=== PATIENT | male | born 1960 | race Caucasian/White ===

== ENCOUNTER 2020-02-01 10:07 | Inpatient (IN) ==
[2020-02-01] MEDS ORDERED: 0.9 % Sodium Chloride 500 ML IV ONE (10:38)
[2020-02-01 10:52] LABS: Basophils % 0.3 %; Hematocrit 29.4 % (37.5-50.1); Hemoglobin 9.7 g/dL (12.9-16.9); Immature Granulocytes % 0.7 % (0-4); Lymphocytes % 13.3 %; Mean Corpuscular Hemoglobin 33.2 pg (28.0-33.3); Mean Corpuscular Volume 100.7 fL (83.0-100.0); Mean Platelet Volume 10.7 fL (9.4-12.4); Monocytes # 0.4 K/mcL (0.0-1.3); Monocytes % 5.1 %; Neutrophils # 6.1 K/mcL (1.6-8.9); Platelet Count 106 K/mcL (140-400); Red Blood Count 2.92 M/mcL (4.19-5.50); Red Cell Distribution Width 14.7 % (11.5-14.5); Segmented Neutrophils % 80.6 %; White Blood Count 7.6 K/mcL (4.3-11.1)
[2020-02-01 11:13] LABS: BUN/Creatinine Ratio 16 (6-26); Blood Urea Nitrogen 21 mg/dL (6-20); Calcium 8.9 mg/dL (8.6-10.3); Carbon Dioxide 23 mEq/L (23-29); Chloride 98 mEq/L (98-107); Glucose 188 mg/dL (70-105); Osmolality,Calculated 282 (280-300); Potassium 3.4 mEq/L (3.5-5.1); Sodium 132 mEq/L (136-145); eGFR For African Americans > 60 (> 60); eGFR For Non-African Americans 58 (> 60)
[2020-02-01 11:22] LABS: Troponin I 0.06 ng/mL (< 0.04)
[2020-02-01 11:53] LABS: Adenovirus Not Detected (Not Detect); Bordetella Pertussis Not Detected (Not Detect); Chlamydophila pneumoniae Not Detected (Not Detect); Coronavirus 229E Not Detected (Not Detect); Coronavirus HKU1 Not Detected (Not Detect); Coronavirus NL63 Not Detected (Not Detect); Coronavirus OC43 Not Detected (Not Detect); Human Metapneumovirus Not Detected (Not Detect); Human Rhinovirus/Enterovirus Not Detected (Not Detect); Influenza A Subtype 2009 H1 Not Detected (Not Detect); Influenza B Not Detected (Not Detect); Mycoplasma pneumoniae Not Detected (Not Detect); Parainfluenza Virus 1 Not Detected (Not Detect); Parainfluenza Virus 2 Not Detected (Not Detect); Parainfluenza Virus 3 Not Detected (Not Detect); Parainfluenza Virus 4 Not Detected (Not Detect); Respiratory Syncytial Virus Not Detected (Not Detect); SARS-CoV-2 DETECTED (Not Detect)
[2020-02-01] MEDS ORDERED: Naloxone 0.4 MG/ML INJ IVP PRN (13:32)
[2020-02-01] MEDS ORDERED: Ondansetron 4 MG/2 ML VIAL IVP PRN (13:32)
[2020-02-01] MEDS ORDERED: D5% in Water 1,000 ML IVC PRN (13:40)
[2020-02-01] MEDS ORDERED: *HR* Dextrose 50 % in Water (Vial) 50 ML VIAL IVP PRN (13:40)
[2020-02-01] MEDS ORDERED: Dextrose Gel 15 GM/37.5 ML TUBE PO PRN ×2 (13:40)
[2020-02-01 14:15] LABS: C-Reactive Protein 223 mg/L (Less than 10); Lactate Dehydrogenase 389 Units/L (140-271)
[2020-02-01 14:33] LABS: Ferritin 1182 ng/mL (20-250)
[2020-02-01] MEDS: Piperacillin/Tazobactam 3.375 GM in 0.9 % Sodium Chloride Mini Bag 100 ML IVPB SCH (16:09)
[2020-02-01] MEDS: polyethylene glycoL 3350 17 GM POWD.PACK PO SCH (16:09)
[2020-02-01] MEDS: Insulin LISPRO 300 UNITS/3 ML VIAL SQ SCH ×2 (16:50→20:51)
[2020-02-01 17:18] LABS: Bacteria,Urine Few per hpf (None-Few); Bilirubin,Urine Negative (Negative); Blood,Urine Small (Negative); Clarity,Urine Clear (Clear); Color,Urine Light-Yellow (Yellow); Glucose,Urine (UA) Normal (Normal); Hyaline Casts,Urine Few per lpf (None Seen); Ketones,Urine Negative (Negative); Leukocyte Esterase,Urine Negative (Negative); Mucus,Urine Few per lpf (None-Few); Nitrite,Urine Negative (Negative); PH,Urine 6.5 pH Units (5.0-8.0); Protein,Urine Trace mg/dL (Neg-Trace); Specific Gravity,Urine 1.017 (1.010-1.025); Urobilinogen,Urine Normal (Normal); WBC,Urine 0-3 per hpf (0-3)
[2020-02-01] MEDS: traZODone 50 MG TABLET PO SCH (20:52)
[2020-02-01] MEDS: *HR* Ticagrelor 90 MG TABLET PO SCH (20:52)
[2020-02-01] MEDS: Loratadine 10 MG TABLET PO SCH (20:53)
[2020-02-02] MEDS: Piperacillin/Tazobactam 3.375 GM in 0.9 % Sodium Chloride Mini Bag 100 ML IVPB SCH ×3 (00:34→15:23)
[2020-02-02] MEDS ORDERED: Oxymetazoline Nasal SPRAY BOTTLE NS PRN ×2 (04:13→19:12)
[2020-02-02] MEDS: Levothyroxine 25 MCG TABLET PO SCH (05:48)
[2020-02-02 06:02] LABS: Basophils % 0.1 %; Eosinophils % 0.1 %; Hematocrit 29.1 % (37.5-50.1); Hemoglobin 9.6 g/dL (12.9-16.9); Immature Granulocytes % 0.5 % (0-4); Lymphocytes # 1.1 K/mcL (0.6-4.6); Lymphocytes % 13.1 %; Mean Corpuscular Hemoglobin 33.6 pg (28.0-33.3); Mean Corpuscular Volume 101.7 fL (83.0-100.0); Mean Platelet Volume 10.5 fL (9.4-12.4); Monocytes # 0.6 K/mcL (0.0-1.3); Monocytes % 6.7 %; Neutrophils # 6.8 K/mcL (1.6-8.9); Platelet Count 117 K/mcL (140-400); Red Blood Count 2.86 M/mcL (4.19-5.50); Segmented Neutrophils % 79.5 %; White Blood Count 8.5 K/mcL (4.3-11.1)
[2020-02-02 06:17] LABS: % Iron Saturation 10 % (20-55); Iron 25 mcg/dL (65-175); Transferrin 173 mg/dL (203-362)
[2020-02-02 06:21] LABS: Alanine Aminotransferase 24 Units/L (7-52); Albumin 3.6 g/dL (3.5-5.7); Alkaline Phosphatase 59 Units/L (34-104); Aspartate Amino Transferase 42 Units/L (13-39); BUN/Creatinine Ratio 20 (6-26); Bilirubin,Total 0.7 mg/dL (0.3-1.0); Blood Urea Nitrogen 18 mg/dL (6-20); Calcium 8.5 mg/dL (8.6-10.3); Carbon Dioxide 22 mEq/L (23-29); Chloride 100 mEq/L (98-107); Globulin 3.5 g/dL (2.4-3.5); Glucose 110 mg/dL (70-105); Magnesium 2.1 mg/dL (1.6-2.6); Osmolality,Calculated 277 (280-300); Phosphorous 1.6 mg/dL (2.7-4.5); Potassium 3.7 mEq/L (3.5-5.1); Sodium 132 mEq/L (136-145); Total Protein 7.1 g/dL (6.4-8.9); eGFR For African Americans > 60 (> 60); eGFR For Non-African Americans > 60 (> 60)
[2020-02-02 06:35] LABS: Thyroid Stimulating Hormone 2.832 mcIU/mL (0.340-5.600); Troponin I 0.04 ng/mL (< 0.04)
[2020-02-02 06:51] LABS: Folate > 22.3 ng/mL (3.0-16.0); Vitamin B12 359 pg/mL (250-1100)
[2020-02-02] MEDS: Spironolactone 25 MG TABLET PO SCH (07:36)
[2020-02-02] MEDS: Multivit/Ca/Min/Fe/FA 1 TAB TABLET PO SCH (07:36)
[2020-02-02] MEDS: polyethylene glycoL 3350 17 GM POWD.PACK PO SCH (07:36)
[2020-02-02] MEDS: Lactobacillus 1 EACH CAP.SPRINK PO SCH ×2 (07:36→20:49)
[2020-02-02] MEDS: Insulin LISPRO 300 UNITS/3 ML VIAL SQ SCH ×4 (09:17→20:26)
[2020-02-02] MEDS: Sacubitril/Valsartan 24/26 MG 1 TABLET PO SCH (09:18)
[2020-02-02] MEDS: *HR* Ticagrelor 90 MG TABLET PO SCH ×2 (09:18→17:17)
[2020-02-02] MEDS: Aspirin Enteric Coated 81 MG Tablet PO SCH (09:18)
[2020-02-02] MEDS ORDERED: Iron Sucrose Complex 400 MG in 0.9 % Sodium Chloride 250 ML IVPB ONE (11:13)
[2020-02-02 13:53] LABS: Hematocrit 28.2 % (37.5-50.1); Hemoglobin 9.3 g/dL (12.9-16.9)
[2020-02-02] MEDS ORDERED: *HR* LORazepam 2 MG/ML VIAL IVP PRN (18:32)
[2020-02-02] MEDS: Loratadine 10 MG TABLET PO SCH (20:50)
[2020-02-02] MEDS: traZODone 50 MG TABLET PO SCH (20:50)
[2020-02-03] MEDS: Piperacillin/Tazobactam 3.375 GM in 0.9 % Sodium Chloride Mini Bag 100 ML IVPB SCH ×2 (00:18→07:58)
[2020-02-03 02:59] LABS: ABG Base Excess -3 mEq/L (-2 to 3); ABG HCO3 21 mEq/L (21-27); ABG Oxygen Saturation 94 % (95-98); ABG PCO2 30 mmHg (35-45); ABG PH 7.44 pH Units (7.32-7.45); ABG PO2 67 mmHg (85-104); ABG TCO2 22 mEq/L (20-26); Blood Gas FiO2 2.5 (1-15=lpm or21-100=%)
[2020-02-03 06:16] LABS: Basophils % 0.2 %; Eosinophils % 0.2 %; Hematocrit 25.8 % (37.5-50.1); Hemoglobin 8.1 g/dL (12.9-16.9); Immature Granulocytes % 0.6 % (0-4); Lymphocytes # 1.2 K/mcL (0.6-4.6); Lymphocytes % 14.9 %; Mean Corpuscular HGB Conc 31.4 g/dL (31.6-35.5); Mean Corpuscular Hemoglobin 33.3 pg (28.0-33.3); Mean Corpuscular Volume 106.2 fL (83.0-100.0); Mean Platelet Volume 10.7 fL (9.4-12.4); Monocytes # 0.6 K/mcL (0.0-1.3); Monocytes % 7.3 %; Neutrophils # 6.2 K/mcL (1.6-8.9); Nucleated Red Blood Cells 0.2 /100 WBC (0); Platelet Count 112 K/mcL (140-400); Red Blood Count 2.43 M/mcL (4.19-5.50); Red Cell Distribution Width 15.1 % (11.5-14.5); Segmented Neutrophils % 76.8 %; White Blood Count 8.1 K/mcL (4.3-11.1)
[2020-02-03 06:28] LABS: INR 1.4; Prothrombin Time 15.6 Seconds (9.4-12.1)
[2020-02-03 06:31] LABS: Activated Partial Thrombo Time 32.3 Seconds (26.0-36.0)
[2020-02-03 06:36] LABS: Alanine Aminotransferase 24 Units/L (7-52); Albumin 3.3 g/dL (3.5-5.7); Alkaline Phosphatase 57 Units/L (34-104); Aspartate Amino Transferase 44 Units/L (13-39); BUN/Creatinine Ratio 17 (6-26); Bilirubin,Total 0.6 mg/dL (0.3-1.0); Blood Urea Nitrogen 13 mg/dL (6-20); Calcium 8.4 mg/dL (8.6-10.3); Carbon Dioxide 20 mEq/L (23-29); Chloride 106 mEq/L (98-107); Globulin 3.3 g/dL (2.4-3.5); Glucose 93 mg/dL (70-105); Lactate Dehydrogenase 422 Units/L (140-271); Osmolality,Calculated 280 (280-300); Potassium 3.6 mEq/L (3.5-5.1); Sodium 135 mEq/L (136-145); Total Protein 6.6 g/dL (6.4-8.9); eGFR For African Americans > 60 (> 60); eGFR For Non-African Americans > 60 (> 60)
[2020-02-03] MEDS: Levothyroxine 25 MCG TABLET PO SCH (06:37)
[2020-02-03 06:41] LABS: Platelet Estimate Slight Decrease (Normal)
[2020-02-03] MEDS: *HR* Ticagrelor 90 MG TABLET PO SCH ×2 (08:00→19:34)
[2020-02-03] MEDS: Lactobacillus 1 EACH CAP.SPRINK PO SCH ×2 (08:00→19:34)
[2020-02-03] MEDS: Spironolactone 25 MG TABLET PO SCH (08:00)
[2020-02-03] MEDS: Sacubitril/Valsartan 24/26 MG 1 TABLET PO SCH (08:00)
[2020-02-03] MEDS: Aspirin Enteric Coated 81 MG Tablet PO SCH (08:00)
[2020-02-03] MEDS: polyethylene glycoL 3350 17 GM POWD.PACK PO SCH (08:02)
[2020-02-03] MEDS: Insulin LISPRO 300 UNITS/3 ML VIAL SQ SCH ×4 (08:02→19:35)
[2020-02-03] MEDS: Multivit/Ca/Min/Fe/FA 1 TAB TABLET PO SCH (08:02)
[2020-02-03 08:39] LABS: C-Reactive Protein 195 mg/L (Less than 10); Ferritin > 1500 ng/mL (20-250)
[2020-02-03] MEDS: Dexamethasone 4 MG/ML VIAL IVP SCH (12:00)
[2020-02-03] MEDS ORDERED: GI Cocktail 40 ML EACH PO ONE (13:02)
[2020-02-03] MEDS ORDERED: Oxymetazoline Nasal SPRAY BOTTLE NS PRN (13:21)
[2020-02-03 13:54] LABS: Hemoglobin 8.1 g/dL (12.9-16.9)
[2020-02-03] MEDS: cefTRIAXone 1,000 MG in Water for inj. (sterile) 10 ML IVP SCH (15:08)
[2020-02-03] MEDS: Azithromycin 500 MG in 0.9 % Sodium Chloride 250 ML IVPB SCH (15:10)
[2020-02-03] MEDS: Loratadine 10 MG TABLET PO SCH (19:34)
[2020-02-03] MEDS: traZODone 50 MG TABLET PO SCH (19:34)
[2020-02-04] MEDS: Levothyroxine 25 MCG TABLET PO SCH (05:17)
[2020-02-04] MEDS: Lactobacillus 1 EACH CAP.SPRINK PO SCH ×2 (07:37→20:23)
[2020-02-04] MEDS: *HR* Ticagrelor 90 MG TABLET PO SCH ×2 (07:37→20:24)
[2020-02-04] MEDS: Multivit/Ca/Min/Fe/FA 1 TAB TABLET PO SCH (07:37)
[2020-02-04] MEDS: Spironolactone 25 MG TABLET PO SCH (07:37)
[2020-02-04] MEDS: Sacubitril/Valsartan 24/26 MG 1 TABLET PO SCH (07:37)
[2020-02-04] MEDS: Aspirin Enteric Coated 81 MG Tablet PO SCH (07:37)
[2020-02-04] MEDS: Furosemide 40 MG TABLET PO SCH (07:37)
[2020-02-04] MEDS: Insulin LISPRO 300 UNITS/3 ML VIAL SQ SCH ×4 (07:38→20:34)
[2020-02-04] MEDS: Dexamethasone 4 MG/ML VIAL IVP SCH (07:39)
[2020-02-04] MEDS: polyethylene glycoL 3350 17 GM POWD.PACK PO SCH (08:04)
[2020-02-04 08:38] LABS: Basophils % 0.1 %; Hematocrit 26.3 % (37.5-50.1); Hemoglobin 8.6 g/dL (12.9-16.9); Immature Granulocytes % 0.9 % (0-4); Lymphocytes # 0.7 K/mcL (0.6-4.6); Lymphocytes % 8.5 %; Mean Corpuscular HGB Conc 32.7 g/dL (31.6-35.5); Mean Corpuscular Hemoglobin 33.5 pg (28.0-33.3); Mean Corpuscular Volume 102.3 fL (83.0-100.0); Mean Platelet Volume 10.6 fL (9.4-12.4); Monocytes # 0.5 K/mcL (0.0-1.3); Monocytes % 6.5 %; Neutrophils # 6.8 K/mcL (1.6-8.9); Nucleated Red Blood Cells 0.2 /100 WBC (0); Platelet Count 153 K/mcL (140-400); Red Blood Count 2.57 M/mcL (4.19-5.50); White Blood Count 8.1 K/mcL (4.3-11.1)
[2020-02-04 08:54] LABS: Alanine Aminotransferase 29 Units/L (7-52); Albumin 3.5 g/dL (3.5-5.7); Alkaline Phosphatase 67 Units/L (34-104); Aspartate Amino Transferase 41 Units/L (13-39); BUN/Creatinine Ratio 21 (6-26); Bilirubin,Total 0.5 mg/dL (0.3-1.0); Blood Urea Nitrogen 14 mg/dL (6-20); Carbon Dioxide 22 mEq/L (23-29); Chloride 107 mEq/L (98-107); Globulin 3.5 g/dL (2.4-3.5); Glucose 123 mg/dL (70-105); Osmolality,Calculated 286 (280-300); Potassium 3.6 mEq/L (3.5-5.1); Sodium 137 mEq/L (136-145); eGFR For African Americans > 60 (> 60); eGFR For Non-African Americans > 60 (> 60)
[2020-02-04] MEDS: cefTRIAXone 1,000 MG in Water for inj. (sterile) 10 ML IVP SCH (14:40)
[2020-02-04] MEDS ORDERED: 0.9 % Sodium Chloride 500 ML ONE (14:41)
[2020-02-04] MEDS: Azithromycin 500 MG in 0.9 % Sodium Chloride 250 ML IVPB SCH (14:44)
[2020-02-04] MEDS: Loratadine 10 MG TABLET PO SCH (20:23)
[2020-02-04] MEDS: traZODone 50 MG TABLET PO SCH (20:23)
[2020-02-04] MEDS: *HR* HYDROcodone/Acet 5/325 mg TABLET PO PRN (20:25)
[2020-02-05] MEDS ORDERED: Benzonatate 100 MG CAPSULE PO PRN (01:50)
[2020-02-05] MEDS: Levothyroxine 25 MCG TABLET PO SCH (05:30)
[2020-02-05 07:18] LABS: Basophils % 0.1 %; Eosinophils % 0.1 %; Hematocrit 25.4 % (37.5-50.1); Hemoglobin 8.2 g/dL (12.9-16.9); Immature Granulocytes % 1.3 % (0-4); Lymphocytes # 1.1 K/mcL (0.6-4.6); Lymphocytes % 12.8 %; Mean Corpuscular HGB Conc 32.3 g/dL (31.6-35.5); Mean Corpuscular Hemoglobin 33.9 pg (28.0-33.3); Mean Platelet Volume 10.6 fL (9.4-12.4); Monocytes # 0.6 K/mcL (0.0-1.3); Monocytes % 6.4 %; Neutrophils # 6.9 K/mcL (1.6-8.9); Nucleated Red Blood Cells 0.9 /100 WBC (0); Platelet Count 160 K/mcL (140-400); Red Blood Count 2.42 M/mcL (4.19-5.50); Red Cell Distribution Width 15.1 % (11.5-14.5); Segmented Neutrophils % 79.3 %; White Blood Count 8.7 K/mcL (4.3-11.1)
[2020-02-05] MEDS: Insulin LISPRO 300 UNITS/3 ML VIAL SQ SCH ×4 (07:43→22:28)
[2020-02-05 07:52] LABS: Alanine Aminotransferase 37 Units/L (7-52); Albumin 3.3 g/dL (3.5-5.7); Albumin/Globulin Ratio 1.1 (1.1-2.2); Alkaline Phosphatase 71 Units/L (34-104); Aspartate Amino Transferase 42 Units/L (13-39); BUN/Creatinine Ratio 24 (6-26); Bilirubin,Total 0.5 mg/dL (0.3-1.0); Blood Urea Nitrogen 17 mg/dL (6-20); Calcium 9.3 mg/dL (8.6-10.3); Carbon Dioxide 23 mEq/L (23-29); Chloride 105 mEq/L (98-107); Globulin 3.1 g/dL (2.4-3.5); Glucose 86 mg/dL (70-105); Lactate Dehydrogenase 373 Units/L (140-271); Osmolality,Calculated 287 (280-300); Potassium 3.5 mEq/L (3.5-5.1); Sodium 138 mEq/L (136-145); Total Protein 6.4 g/dL (6.4-8.9); eGFR For African Americans > 60 (> 60); eGFR For Non-African Americans > 60 (> 60)
[2020-02-05 07:58] LABS: Ferritin 1263 ng/mL (20-250)
[2020-02-05] MEDS ORDERED: *HR* Rivaroxaban 10 MG TABLET PO ONE (08:14)
[2020-02-05 09:13] LABS: C-Reactive Protein 100 mg/L (Less than 10)
[2020-02-05] MEDS: Lactobacillus 1 EACH CAP.SPRINK PO SCH ×2 (11:00→20:18)
[2020-02-05] MEDS: Sacubitril/Valsartan 24/26 MG 1 TABLET PO SCH (11:00)
[2020-02-05] MEDS: Spironolactone 25 MG TABLET PO SCH (11:00)
[2020-02-05] MEDS: *HR* Ticagrelor 90 MG TABLET PO SCH ×2 (11:00→20:18)
[2020-02-05] MEDS: Furosemide 40 MG TABLET PO SCH (11:00)
[2020-02-05] MEDS: Aspirin Enteric Coated 81 MG Tablet PO SCH (11:00)
[2020-02-05] MEDS: Dexamethasone 4 MG/ML VIAL IVP SCH (11:02)
[2020-02-05] MEDS: polyethylene glycoL 3350 17 GM POWD.PACK PO SCH (11:02)
[2020-02-05] MEDS: Multivit/Ca/Min/Fe/FA 1 TAB TABLET PO SCH (11:04)
[2020-02-05] MEDS ORDERED: *HR* Rivaroxaban 10 MG TABLET PO SCH ×2 (12:45→17:00)
[2020-02-05] MEDS: cefTRIAXone 1,000 MG in Water for inj. (sterile) 10 ML IVP SCH (15:57)
[2020-02-05] MEDS: Azithromycin 250 MG TABLET PO SCH (15:58)
[2020-02-05] MEDS: traZODone 50 MG TABLET PO SCH (20:18)
[2020-02-05] MEDS: *HR* HYDROcodone/Acet 5/325 mg TABLET PO PRN (20:19)
[2020-02-05] MEDS: Loratadine 10 MG TABLET PO SCH (20:19)
[2020-02-06] MEDS: Levothyroxine 25 MCG TABLET PO SCH (05:21)
[2020-02-06] MEDS: polyethylene glycoL 3350 17 GM POWD.PACK PO SCH (08:28)
[2020-02-06] MEDS: Dexamethasone 4 MG/ML VIAL IVP SCH (08:28)
[2020-02-06] MEDS: Lactobacillus 1 EACH CAP.SPRINK PO SCH ×2 (08:29→20:31)
[2020-02-06] MEDS: Sacubitril/Valsartan 24/26 MG 1 TABLET PO SCH (08:29)
[2020-02-06] MEDS: Spironolactone 25 MG TABLET PO SCH (08:29)
[2020-02-06] MEDS: Multivit/Ca/Min/Fe/FA 1 TAB TABLET PO SCH (08:29)
[2020-02-06] MEDS: *HR* Ticagrelor 90 MG TABLET PO SCH ×2 (08:29→20:31)
[2020-02-06] MEDS: Furosemide 40 MG TABLET PO SCH (08:29)
[2020-02-06] MEDS: Aspirin Enteric Coated 81 MG Tablet PO SCH (08:29)
[2020-02-06] MEDS: *HR* Rivaroxaban 10 MG TABLET PO SCH (08:30)
[2020-02-06 09:06] LABS: INR 1.5; Prothrombin Time 16.6 Seconds (9.4-12.1)
[2020-02-06 09:08] LABS: Hematocrit 30.3 % (37.5-50.1); Mean Corpuscular Volume 103.1 fL (83.0-100.0); Mean Platelet Volume 10.5 fL (9.4-12.4); Platelet Count 195 K/mcL (140-400); Red Blood Count 2.94 M/mcL (4.19-5.50); Red Cell Distribution Width 15.3 % (11.5-14.5); White Blood Count 9.7 K/mcL (4.3-11.1)
[2020-02-06] MEDS: Insulin LISPRO 300 UNITS/3 ML VIAL SQ SCH ×4 (09:42→20:34)
[2020-02-06 12:24] LABS: BUN/Creatinine Ratio 19 (6-26); Blood Urea Nitrogen 15 mg/dL (6-20); C-Reactive Protein 156 mg/L (Less than 10); Calcium 9.3 mg/dL (8.6-10.3); Carbon Dioxide 23 mEq/L (23-29); Chloride 101 mEq/L (98-107); Ferritin 1347 ng/mL (20-250); Glucose 137 mg/dL (70-105); Lactate Dehydrogenase 429 Units/L (140-271); Magnesium 1.8 mg/dL (1.6-2.6); Osmolality,Calculated 285 (280-300); Potassium 3.5 mEq/L (3.5-5.1); Sodium 136 mEq/L (136-145); eGFR For African Americans > 60 (> 60); eGFR For Non-African Americans > 60 (> 60)
[2020-02-06] MEDS: *HR* HYDROcodone/Acet 5/325 mg TABLET PO PRN (14:24)
[2020-02-06] MEDS: Azithromycin 250 MG TABLET PO SCH (14:24)
[2020-02-06] MEDS: cefTRIAXone 1,000 MG in Water for inj. (sterile) 10 ML IVP SCH (14:25)
[2020-02-06] MEDS ORDERED: hydrOXYzine pamoate 25 MG CAPSULE PO PRN (14:32)
[2020-02-06] MEDS: Loratadine 10 MG TABLET PO SCH (20:31)
[2020-02-06] MEDS: traZODone 50 MG TABLET PO SCH (20:32)
[2020-02-07] MEDS: *HR* HYDROcodone/Acet 5/325 mg TABLET PO PRN ×2 (00:06→20:01)
[2020-02-07] MEDS: Levothyroxine 25 MCG TABLET PO SCH (05:38)
[2020-02-07 06:25] LABS: Hematocrit 28.9 % (37.5-50.1); Hemoglobin 9.5 g/dL (12.9-16.9); Mean Corpuscular HGB Conc 32.9 g/dL (31.6-35.5); Mean Corpuscular Volume 100.3 fL (83.0-100.0); Mean Platelet Volume 10.3 fL (9.4-12.4); Platelet Count 198 K/mcL (140-400); Red Blood Count 2.88 M/mcL (4.19-5.50); Red Cell Distribution Width 15.4 % (11.5-14.5); White Blood Count 10.4 K/mcL (4.3-11.1)
[2020-02-07 06:34] LABS: INR 1.4; Prothrombin Time 16.4 Seconds (9.4-12.1)
[2020-02-07 06:38] LABS: Magnesium 1.9 mg/dL (1.6-2.6)
[2020-02-07 06:42] LABS: Lactate Dehydrogenase 410 Units/L (140-271)
[2020-02-07 06:55] LABS: Ferritin 1284 ng/mL (20-250)
[2020-02-07 07:32] VITALS: BP 122/75
[2020-02-07] MEDS: Insulin LISPRO 300 UNITS/3 ML VIAL SQ SCH ×3 (07:49→16:30)
[2020-02-07] MEDS: Multivit/Ca/Min/Fe/FA 1 TAB TABLET PO SCH (07:54)
[2020-02-07] MEDS: Dexamethasone 4 MG/ML VIAL IVP SCH (07:55)
[2020-02-07] MEDS: Spironolactone 25 MG TABLET PO SCH (07:55)
[2020-02-07] MEDS: Furosemide 40 MG TABLET PO SCH (07:55)
[2020-02-07] MEDS: *HR* Ticagrelor 90 MG TABLET PO SCH ×2 (07:55→20:02)
[2020-02-07] MEDS: Lactobacillus 1 EACH CAP.SPRINK PO SCH ×2 (07:55→20:00)
[2020-02-07] MEDS: *HR* Rivaroxaban 10 MG TABLET PO SCH (07:55)
[2020-02-07] MEDS: Aspirin Enteric Coated 81 MG Tablet PO SCH (07:55)
[2020-02-07] MEDS: polyethylene glycoL 3350 17 GM POWD.PACK PO SCH (07:56)
[2020-02-07] MEDS: Sacubitril/Valsartan 24/26 MG 1 TABLET PO SCH (07:57)
[2020-02-07] MEDS ORDERED: cefTRIAXone 1,000 MG in Water for inj. (sterile) 10 ML IVP ONE (08:29)
[2020-02-07] MEDS ORDERED: Azithromycin 250 MG TABLET PO ONE (08:29)
[2020-02-07 08:40] LABS: eGFR For African Americans > 60 (> 60); eGFR For Non-African Americans > 60 (> 60)
[2020-02-07 10:33] LABS: C-Reactive Protein 161 mg/L (Less than 10)
[2020-02-07] MEDS: Loratadine 10 MG TABLET PO SCH (20:02)
== END 2020-02-07 20:40 | disposition home health service (06) | DRG 177 ==
LOC: EMEROOARM 10:07 → 2NENU 10:07 → SUATTDRO 15:46
PROVIDERS: ADMIT Internal Medicine; ATTEND Internal Medicine

== ENCOUNTER 2020-02-13 09:36 | Inpatient (IN) ==
[2020-02-13 10:27] LABS: VBG HCO3 25 mEq/L (21-27); VBG PCO2 42 mmHg (41-51); VBG PH 7.39 pH Units (7.32-7.42); VBG PO2 33 mmHg (25-50)
[2020-02-13 10:28] LABS: Basophils % 0.1 %; Hemoglobin 9.5 g/dL (12.9-16.9); Immature Granulocytes % 0.5 % (0-4); Lymphocytes # 1.3 K/mcL (0.6-4.6); Lymphocytes % 9.5 %; Mean Corpuscular HGB Conc 31.7 g/dL (31.6-35.5); Mean Corpuscular Hemoglobin 32.1 pg (28.0-33.3); Mean Corpuscular Volume 101.4 fL (83.0-100.0); Mean Platelet Volume 10.3 fL (9.4-12.4); Monocytes # 0.9 K/mcL (0.0-1.3); Monocytes % 6.3 %; Neutrophils # 11.6 K/mcL (1.6-8.9); Nucleated Red Blood Cells 0.8 /100 WBC (0); Platelet Count 185 K/mcL (140-400); Red Blood Count 2.96 M/mcL (4.19-5.50); Red Cell Distribution Width 16.3 % (11.5-14.5); Segmented Neutrophils % 83.6 %; White Blood Count 13.9 K/mcL (4.3-11.1)
[2020-02-13 11:00] LABS: BUN/Creatinine Ratio 29 (6-26); Blood Urea Nitrogen 27 mg/dL (6-20); Calcium 8.6 mg/dL (8.6-10.3); Carbon Dioxide 24 mEq/L (23-29); Chloride 99 mEq/L (98-107); Glucose 110 mg/dL (70-105); Osmolality,Calculated 282 (280-300); Potassium 3.6 mEq/L (3.5-5.1); Sodium 133 mEq/L (136-145); eGFR For African Americans > 60 (> 60); eGFR For Non-African Americans > 60 (> 60)
[2020-02-13] MEDS ORDERED: Piperacillin/Tazobactam 3.375 GM in 0.9 % Sodium Chloride Mini Bag 100 ML IVPB ONE (11:08)
[2020-02-13 11:09] LABS: Troponin I 0.06 ng/mL (< 0.04)
[2020-02-13] MEDS ORDERED: Vancomycin 1,250 MG/262.5 ML IV.SOLN IVPB ONE (11:18)
[2020-02-13] MEDS ORDERED: Isovue-370 500 ML BOTTLE IVP ONE (11:20)
[2020-02-13] MEDS ORDERED: Ondansetron 4 MG/2 ML VIAL IVP PRN (13:54)
[2020-02-13] MEDS ORDERED: *HR* Etomidate 40 MG/20 ML VIAL IVP ONE (13:55)
[2020-02-13] MEDS ORDERED: *HR* Rocuronium Bromide 100 MG/10 ML VIAL IVP ONE (13:55)
[2020-02-13 14:03] LABS: ABG Base Excess 2 mEq/L (-2 to 3); ABG HCO3 24 mEq/L (21-27); ABG Oxygen Saturation 94 % (95-98); ABG PCO2 31 mmHg (35-45); ABG PH 7.51 pH Units (7.32-7.45); ABG PO2 63 mmHg (85-104); ABG TCO2 25 mEq/L (20-26)
[2020-02-13] MEDS ORDERED: 0.9 % Sodium Chloride 250 ML ONE (14:34)
[2020-02-13] MEDS ORDERED: *HR* Norepinephrine 4 MG/4 ML VIAL IVC ONE (14:35)
[2020-02-13] MEDS ORDERED: Ringers Solution, Lactated 1,000 ML ONE (14:36)
[2020-02-13] MEDS: Ringers Solution, Lactated 1,000 ML ONE ×2 (14:51→15:17)
[2020-02-13] MEDS: Ringers Solution, Lactated 1,000 ML IVC ONE ×2 (14:51→15:18)
[2020-02-13] MEDS ORDERED: Ringers Solution, Lactated 1,000 ML IVC ONE (14:52)
[2020-02-13] MEDS ORDERED: *HR* FentaNYL (PF) 1,000 MCG/20 ML VIAL ONE (14:57)
[2020-02-13] MEDS: Midazolam HCl 50 MG/100 ML IV.SOLN IVC SCH ×2 (15:13→23:38)
[2020-02-13] MEDS: FentaNYL (PF) 1,000 MCG/100 ML IV.SOLN IVC SCH ×2 (15:14→23:39)
[2020-02-13] MEDS: Norepinephrine 4 MG/254 ML IV.SOLN IVC SCH ×2 (15:14→20:00)
[2020-02-13] MEDS ORDERED: *HR* Rocuronium Bromide 50 MG/5 ML VIAL IVP ONE (15:45)
[2020-02-13] MEDS: Ipratropium 1 PUFF INHALER IH SCH ×2 (15:55→20:07)
[2020-02-13] MEDS ORDERED: Cefepime HCl 2,000 MG in Water for inj. (sterile) 20 ML IVP SCH (16:00)
[2020-02-13] MEDS ORDERED: Artificial Tears SOLN 15 ML BOTTLE BOTH EYES PRN (16:38)
[2020-02-13 17:26] LABS: ABG Base Excess 0 mEq/L (-2 to 3); ABG HCO3 26 mEq/L (21-27); ABG Oxygen Saturation 99 % (95-98); ABG PCO2 42 mmHg (35-45); ABG PH 7.39 pH Units (7.32-7.45); ABG PO2 122 mmHg (85-104); ABG TCO2 27 mEq/L (20-26); Blood Gas Modality ASSIST CONTROL; Blood Gas VT 550 cc
[2020-02-13] MEDS: Budesonide/Formoterol 160/4.5 1 PUFF INH IH SCH (20:13)
[2020-02-13] MEDS: Chlorhexidine Rinse 15 ML MOUTHWASH MM SCH (20:55)
[2020-02-13] MEDS: Piperacillin/Tazobactam 3.375 GM in 0.9 % Sodium Chloride Mini Bag 100 ML IVPB SCH (20:56)
[2020-02-13] MEDS: Artificial Tears SOLN 15 ML BOTTLE BOTH EYES SCH ×2 (20:56→23:39)
[2020-02-13] MEDS ORDERED: *HR* Ticagrelor 90 MG TABLET PO SCH (21:00)
[2020-02-13 21:39] LABS: INR 1.7; Prothrombin Time 19.7 Seconds (9.4-12.1)
[2020-02-13 21:44] LABS: Lactate Dehydrogenase 551 Units/L (140-271)
[2020-02-13 21:48] LABS: Hematocrit 26.6 % (37.5-50.1); Hemoglobin 8.4 g/dL (12.9-16.9)
[2020-02-13] MEDS: Cisatracurium 200 MG in 0.9 % Sodium Chloride 180 ML IVC SCH (21:57)
[2020-02-13 22:07] LABS: Ferritin > 1500 ng/mL (20-250)
[2020-02-13 22:27] LABS: Bilirubin,Urine Negative (Negative); Blood,Urine Moderate (Negative); Clarity,Urine Clear (Clear); Color,Urine Yellow (Yellow); Glucose,Urine (UA) Normal (Normal); Ketones,Urine Negative (Negative); Leukocyte Esterase,Urine Negative (Negative); Nitrite,Urine Negative (Negative); PH,Urine 5.5 pH Units (5.0-8.0); Protein,Urine Trace mg/dL (Neg-Trace); RBC,Urine 50-100 per hpf (0-3); Specific Gravity,Urine > 1.030 (1.010-1.025); Urobilinogen,Urine Normal (Normal); WBC,Urine 0-3 per hpf (0-3)
[2020-02-13] MEDS: Vancomycin 1,250 MG/262.5 ML IV.SOLN IVPB SCH (23:42)
[2020-02-14] MEDS: Ipratropium 1 PUFF INHALER IH SCH ×6 (00:16→19:53)
[2020-02-14] MEDS ORDERED: Acetaminophen 650 MG RECTAL SUPP RC PRN (00:45)
[2020-02-14 03:00] LABS: Basophils % 0.1 %; Eosinophils # 0.1 K/mcL (0.0-0.6); Eosinophils % 0.5 %; Hematocrit 26.8 % (37.5-50.1); Hemoglobin 8.2 g/dL (12.9-16.9); Immature Granulocytes % 0.6 % (0-4); Lymphocytes # 1.2 K/mcL (0.6-4.6); Lymphocytes % 7.8 %; Mean Corpuscular HGB Conc 30.6 g/dL (31.6-35.5); Mean Corpuscular Hemoglobin 31.7 pg (28.0-33.3); Mean Corpuscular Volume 103.5 fL (83.0-100.0); Mean Platelet Volume 10.1 fL (9.4-12.4); Monocytes # 1.1 K/mcL (0.0-1.3); Monocytes % 7.1 %; Nucleated Red Blood Cells 0.8 /100 WBC (0); Platelet Count 184 K/mcL (140-400); Red Blood Count 2.59 M/mcL (4.19-5.50); Red Cell Distribution Width 17.2 % (11.5-14.5); Segmented Neutrophils % 83.9 %; White Blood Count 15.5 K/mcL (4.3-11.1)
[2020-02-14 03:20] LABS: Alanine Aminotransferase 40 Units/L (7-52); Albumin 2.7 g/dL (3.5-5.7); Albumin/Globulin Ratio 0.8 (1.1-2.2); Alkaline Phosphatase 161 Units/L (34-104); Aspartate Amino Transferase 33 Units/L (13-39); BUN/Creatinine Ratio 21 (6-26); Bilirubin,Direct 0.2 mg/dL (0.0-0.2); Bilirubin,Indirect 0.4 mg/dL (0.0-1.0); Bilirubin,Total 0.6 mg/dL (0.3-1.0); Blood Urea Nitrogen 27 mg/dL (6-20); Calcium 7.5 mg/dL (8.6-10.3); Carbon Dioxide 26 mEq/L (23-29); Chloride 105 mEq/L (98-107); Globulin 3.4 g/dL (2.4-3.5); Glucose 132 mg/dL (70-105); Magnesium 2.2 mg/dL (1.6-2.6); Osmolality,Calculated 289 (280-300); Phosphorous 5.3 mg/dL (2.7-4.5); Potassium 4.5 mEq/L (3.5-5.1); Sodium 136 mEq/L (136-145); Total Protein 6.1 g/dL (6.4-8.9); eGFR For African Americans > 60 (> 60); eGFR For Non-African Americans 58 (> 60)
[2020-02-14] MEDS: Norepinephrine 4 MG/254 ML IV.SOLN IVC SCH ×4 (04:00→23:25)
[2020-02-14 04:06] LABS: ABG Base Excess -3 mEq/L (-2 to 3); ABG HCO3 27 mEq/L (21-27); ABG Oxygen Saturation 100 % (95-98); ABG PCO2 67 mmHg (35-45); ABG PO2 234 mmHg (85-104); ABG TCO2 29 mEq/L (20-26); Blood Gas Modality ASSIST CONTROL; Blood Gas VT 450 cc
[2020-02-14] MEDS: Artificial Tears SOLN 15 ML BOTTLE BOTH EYES SCH ×5 (04:33→20:00)
[2020-02-14] MEDS: Piperacillin/Tazobactam 3.375 GM in 0.9 % Sodium Chloride Mini Bag 100 ML IVPB SCH ×3 (04:33→20:34)
[2020-02-14] MEDS: Levothyroxine 25 MCG TABLET PO SCH (04:34)
[2020-02-14] MEDS: FentaNYL (PF) 1,000 MCG/100 ML IV.SOLN IVC SCH ×3 (05:32→19:15)
[2020-02-14] MEDS: Budesonide/Formoterol 160/4.5 1 PUFF INH IH SCH ×2 (07:30→19:53)
[2020-02-14 07:41] LABS: ABG Base Excess -3 mEq/L (-2 to 3); ABG HCO3 26 mEq/L (21-27); ABG Oxygen Saturation 100 % (95-98); ABG PCO2 65 mmHg (35-45); ABG PH 7.21 pH Units (7.32-7.45); ABG PO2 260 mmHg (85-104); ABG TCO2 28 mEq/L (20-26); Blood Gas Modality ASSIST CONTROL; Blood Gas VT 450 cc
[2020-02-14] MEDS: Chlorhexidine Rinse 15 ML MOUTHWASH MM SCH (07:52)
[2020-02-14] MEDS: Pantoprazole 40 MG VIAL IVP SCH (07:52)
[2020-02-14] MEDS ORDERED: Aspirin Enteric Coated 81 MG Tablet PO SCH (09:00)
[2020-02-14] MEDS: Calcium Gluconate 1gm/50mL 1 GM/50 ML BAG IVPB SCH (09:06)
[2020-02-14] MEDS: Midazolam HCl 50 MG/100 ML IV.SOLN IVC SCH ×2 (09:35→18:43)
[2020-02-14] MEDS: Vancomycin 1,250 MG/262.5 ML IV.SOLN IVPB SCH (11:44)
[2020-02-14 11:51] LABS: ABG Base Excess -3 mEq/L (-2 to 3); ABG HCO3 23 mEq/L (21-27); ABG Oxygen Saturation 93 % (95-98); ABG PCO2 46 mmHg (35-45); ABG PH 7.32 pH Units (7.32-7.45); ABG PO2 72 mmHg (85-104); ABG TCO2 25 mEq/L (20-26); Blood Gas Modality ASSIST CONTROL; Blood Gas VT 450 cc
[2020-02-14] MEDS: Dexamethasone 4 MG/ML VIAL IVP SCH (15:34)
[2020-02-14] MEDS ORDERED: *HR* Rivaroxaban 10 MG TABLET PO SCH (17:00)
[2020-02-14 17:06] LABS: Basophils % 0.1 %; Eosinophils # 0.1 K/mcL (0.0-0.6); Eosinophils % 0.6 %; Hematocrit 23.5 % (37.5-50.1); Hemoglobin 7.2 g/dL (12.9-16.9); Immature Granulocytes % 0.6 % (0-4); Lymphocytes # 0.9 K/mcL (0.6-4.6); Lymphocytes % 7.8 %; Mean Corpuscular HGB Conc 30.6 g/dL (31.6-35.5); Mean Corpuscular Volume 104.4 fL (83.0-100.0); Monocytes # 0.6 K/mcL (0.0-1.3); Monocytes % 5.4 %; Neutrophils # 9.5 K/mcL (1.6-8.9); Nucleated Red Blood Cells 0.6 /100 WBC (0); Platelet Count 129 K/mcL (140-400); Red Blood Count 2.25 M/mcL (4.19-5.50); Red Cell Distribution Width 17.2 % (11.5-14.5); Segmented Neutrophils % 85.5 %; White Blood Count 11.1 K/mcL (4.3-11.1)
[2020-02-14 17:26] LABS: Alanine Aminotransferase 36 Units/L (7-52); Albumin 2.5 g/dL (3.5-5.7); Albumin/Globulin Ratio 0.7 (1.1-2.2); Alkaline Phosphatase 124 Units/L (34-104); Aspartate Amino Transferase 31 Units/L (13-39); BUN/Creatinine Ratio 23 (6-26); Bilirubin,Total 0.5 mg/dL (0.3-1.0); Blood Urea Nitrogen 30 mg/dL (6-20); Calcium 7.9 mg/dL (8.6-10.3); Carbon Dioxide 25 mEq/L (23-29); Chloride 109 mEq/L (98-107); Globulin 3.4 g/dL (2.4-3.5); Glucose 113 mg/dL (70-105); Osmolality,Calculated 295 (280-300); Potassium 4.5 mEq/L (3.5-5.1); Sodium 139 mEq/L (136-145); Total Protein 5.9 g/dL (6.4-8.9); eGFR For African Americans > 60 (> 60); eGFR For Non-African Americans 56 (> 60)
[2020-02-14] MEDS ORDERED: 0.9 % Sodium Chloride 250 ML ONE (20:32)
[2020-02-14] MEDS: Furosemide 20 MG/2 ML VIAL IVP SCH (23:24)
[2020-02-15] MEDS: Ipratropium 1 PUFF INHALER IH SCH ×7 (00:15→23:45)
[2020-02-15] MEDS: Artificial Tears SOLN 15 ML BOTTLE BOTH EYES SCH ×7 (00:36→23:50)
[2020-02-15] MEDS: Chlorhexidine Rinse 15 ML MOUTHWASH MM SCH ×3 (00:36→19:52)
[2020-02-15] MEDS: Vancomycin 1,250 MG/262.5 ML IV.SOLN IVPB SCH ×2 (01:22→13:08)
[2020-02-15] MEDS: Cisatracurium 200 MG in 0.9 % Sodium Chloride 180 ML IVC SCH ×2 (02:00→19:45)
[2020-02-15] MEDS: Piperacillin/Tazobactam 3.375 GM in 0.9 % Sodium Chloride Mini Bag 100 ML IVPB SCH ×3 (03:13→19:52)
[2020-02-15] MEDS ORDERED: 0.9 % Sodium Chloride 250 ML ONE (03:18)
[2020-02-15] MEDS: FentaNYL (PF) 1,000 MCG/100 ML IV.SOLN IVC SCH ×4 (03:30→19:09)
[2020-02-15 04:15] LABS: ABG Base Excess -1 mEq/L (-2 to 3); ABG HCO3 25 mEq/L (21-27); ABG Oxygen Saturation 94 % (95-98); ABG PCO2 45 mmHg (35-45); ABG PH 7.35 pH Units (7.32-7.45); ABG PO2 73 mmHg (85-104); ABG TCO2 26 mEq/L (20-26); Blood Gas Modality ASSIST CONTROL; Blood Gas VT 450 cc
[2020-02-15 04:30] LABS: Basophils % 0.1 %; Hematocrit 26.9 % (37.5-50.1); Hemoglobin 8.2 g/dL (12.9-16.9); Immature Granulocytes % 0.5 % (0-4); Lymphocytes # 0.9 K/mcL (0.6-4.6); Lymphocytes % 7.4 %; Mean Corpuscular HGB Conc 30.5 g/dL (31.6-35.5); Mean Corpuscular Hemoglobin 30.8 pg (28.0-33.3); Mean Corpuscular Volume 101.1 fL (83.0-100.0); Mean Platelet Volume 9.8 fL (9.4-12.4); Monocytes # 0.6 K/mcL (0.0-1.3); Nucleated Red Blood Cells 0.3 /100 WBC (0); Platelet Count 117 K/mcL (140-400); Red Blood Count 2.66 M/mcL (4.19-5.50); White Blood Count 11.4 K/mcL (4.3-11.1)
[2020-02-15 04:30] LABS: VBG Ionized Calcium 1.09 mmol/L (1.15-1.35)
[2020-02-15 04:46] LABS: Alanine Aminotransferase 32 Units/L (7-52); Albumin 2.6 g/dL (3.5-5.7); Albumin/Globulin Ratio 0.8 (1.1-2.2); Alkaline Phosphatase 108 Units/L (34-104); Aspartate Amino Transferase 28 Units/L (13-39); BUN/Creatinine Ratio 22 (6-26); Bilirubin,Total 0.6 mg/dL (0.3-1.0); Blood Urea Nitrogen 29 mg/dL (6-20); Calcium 7.6 mg/dL (8.6-10.3); Carbon Dioxide 24 mEq/L (23-29); Chloride 110 mEq/L (98-107); Globulin 3.3 g/dL (2.4-3.5); Glucose 135 mg/dL (70-105); Magnesium 2.4 mg/dL (1.6-2.6); Osmolality,Calculated 298 (280-300); Phosphorous 3.2 mg/dL (2.7-4.5); Potassium 4.4 mEq/L (3.5-5.1); Sodium 140 mEq/L (136-145); Total Protein 5.9 g/dL (6.4-8.9); eGFR For African Americans > 60 (> 60); eGFR For Non-African Americans 57 (> 60)
[2020-02-15] MEDS: Levothyroxine 25 MCG TABLET PO SCH (05:33)
[2020-02-15] MEDS: Calcium Gluconate 1gm/50mL 1 GM/50 ML BAG IVPB PRN ×2 (06:13→17:26)
[2020-02-15] MEDS: Furosemide 20 MG/2 ML VIAL IVP SCH (06:13)
[2020-02-15] MEDS: Midazolam HCl 50 MG/100 ML IV.SOLN IVC SCH ×2 (06:16→14:10)
[2020-02-15] MEDS: Budesonide/Formoterol 160/4.5 1 PUFF INH IH SCH ×2 (07:52→19:27)
[2020-02-15] MEDS: Pantoprazole 40 MG VIAL IVP SCH (09:11)
[2020-02-15] MEDS: Dexamethasone 4 MG/ML VIAL IVP SCH (09:12)
[2020-02-15] MEDS: Calcium Gluconate 1gm/50mL 1 GM/50 ML BAG IVPB SCH (13:10)
[2020-02-15 13:47] LABS: Basophils % 0.1 %; Eosinophils % 0.1 %; Hematocrit 28.4 % (37.5-50.1); Immature Granulocytes % 0.6 % (0-4); Lymphocytes # 0.5 K/mcL (0.6-4.6); Lymphocytes % 4.2 %; Mean Corpuscular HGB Conc 31.7 g/dL (31.6-35.5); Mean Corpuscular Volume 94.7 fL (83.0-100.0); Mean Platelet Volume 9.7 fL (9.4-12.4); Monocytes # 0.2 K/mcL (0.0-1.3); Monocytes % 1.7 %; Nucleated Red Blood Cells 0.2 /100 WBC (0); Platelet Count 111 K/mcL (140-400); Red Cell Distribution Width 22.1 % (11.5-14.5); Segmented Neutrophils % 93.3 %; White Blood Count 12.9 K/mcL (4.3-11.1)
[2020-02-15 13:52] LABS: INR 1.4; Prothrombin Time 16.5 Seconds (9.4-12.1)
[2020-02-15 13:54] LABS: Activated Partial Thrombo Time 29.7 Seconds (26.0-36.0)
[2020-02-15 14:13] LABS: BUN/Creatinine Ratio 24 (6-26); Blood Urea Nitrogen 30 mg/dL (6-20); Calcium 7.8 mg/dL (8.6-10.3); Carbon Dioxide 24 mEq/L (23-29); Chloride 110 mEq/L (98-107); Glucose 158 mg/dL (70-105); Osmolality,Calculated 301 (280-300); Potassium 4.2 mEq/L (3.5-5.1); Sodium 141 mEq/L (136-145); eGFR For African Americans > 60 (> 60); eGFR For Non-African Americans 60 (> 60)
[2020-02-15] MEDS ORDERED: *HR* Dextrose 50 % in Water (Vial) 50 ML VIAL IVP PRN (17:20)
[2020-02-15] MEDS ORDERED: D5% in Water 1,000 ML IVC PRN (17:20)
[2020-02-15] MEDS ORDERED: Dextrose Gel 15 GM/37.5 ML TUBE PO PRN ×2 (17:20)
[2020-02-15] MEDS: Acetaminophen 325 MG TABLET PO PRN ×2 (17:23→23:53)
[2020-02-15] MEDS: Norepinephrine 4 MG/254 ML IV.SOLN IVC SCH (17:31)
[2020-02-15 19:37] LABS: Enterococcus by PCR Not Detected (Not Detect); Staphylococcus aureus by PCR DETECTED (Not Detect); Staphylococcus by PCR Not Detected (Not Detect); mecA Methicillin-Resist Gene DETECTED (Not Detect)
[2020-02-15 19:38] LABS: Acinetobacter baumannii by PCR Not Detected (Not Detect); Candida albicans by PCR Not Detected (Not Detect); Candida glabrata by PCR Not Detected (Not Detect); Candida krusei by PCR Not Detected (Not Detect); Candida parapsilosis by PCR Not Detected (Not Detect); Candida tropicalis by PCR Not Detected (Not Detect); Enterobacter cloacae Cmplx PCR Not Detected (Not Detect); Enterobacteriaceae by PCR Not Detected (Not Detect); Escherichia coli by PCR Not Detected (Not Detect); Klebsiella oxytoca by PCR Not Detected (Not Detect); Klebsiella pneumoniae by PCR Not Detected (Not Detect); Proteus by PCR Not Detected (Not Detect); Pseudomonas aeruginosa by PCR Not Detected (Not Detect); Serratia marcescens by PCR Not Detected (Not Detect); Streptococcus agalactiae(B)PCR Not Detected (Not Detect); Streptococcus by PCR Not Detected (Not Detect); Streptococcus pneumoniae PCR Not Detected (Not Detect); Streptococcus pyogenes (A) PCR Not Detected (Not Detect)
[2020-02-15] MEDS: Insulin LISPRO 300 UNITS/3 ML VIAL SQ SCH ×2 (21:58→23:50)
[2020-02-16] MEDS: Vancomycin 1,250 MG/262.5 ML IV.SOLN IVPB SCH ×2 (00:09→13:18)
[2020-02-16] MEDS: Midazolam HCl 50 MG/100 ML IV.SOLN IVC SCH ×2 (00:52→14:06)
[2020-02-16] MEDS: FentaNYL (PF) 1,000 MCG/100 ML IV.SOLN IVC SCH ×4 (00:53→17:00)
[2020-02-16] MEDS: Ipratropium 1 PUFF INHALER IH SCH ×6 (03:33→23:29)
[2020-02-16] MEDS: Artificial Tears SOLN 15 ML BOTTLE BOTH EYES SCH ×5 (03:52→21:58)
[2020-02-16] MEDS: Piperacillin/Tazobactam 3.375 GM in 0.9 % Sodium Chloride Mini Bag 100 ML IVPB SCH ×3 (03:53→22:00)
[2020-02-16 03:57] LABS: ABG Base Excess 2 mEq/L (-2 to 3); ABG HCO3 27 mEq/L (21-27); ABG Oxygen Saturation 96 % (95-98); ABG PCO2 41 mmHg (35-45); ABG PH 7.42 pH Units (7.32-7.45); ABG PO2 80 mmHg (85-104); ABG TCO2 28 mEq/L (20-26); Blood Gas Modality ASSIST CONTROL; Blood Gas VT 450 cc
[2020-02-16] MEDS: Insulin LISPRO 300 UNITS/3 ML VIAL SQ SCH ×5 (04:20→21:59)
[2020-02-16] MEDS: Levothyroxine 25 MCG TABLET PO SCH (04:32)
[2020-02-16 04:35] LABS: Hemoglobin 8.4 g/dL (12.9-16.9)
[2020-02-16 04:37] LABS: Basophils % 0.1 %; Hematocrit 26.9 % (37.5-50.1); Immature Granulocytes % 0.9 % (0-4); Immature Platelets 2.7 % (1.1-6.1); Lymphocytes # 0.9 K/mcL (0.6-4.6); Lymphocytes % 8.3 %; Mean Corpuscular HGB Conc 31.2 g/dL (31.6-35.5); Mean Corpuscular Hemoglobin 30.1 pg (28.0-33.3); Mean Corpuscular Volume 96.4 fL (83.0-100.0); Mean Platelet Volume 10.1 fL (9.4-12.4); Monocytes # 0.8 K/mcL (0.0-1.3); Monocytes % 7.1 %; Neutrophils # 9.1 K/mcL (1.6-8.9); Nucleated Red Blood Cells 0.2 /100 WBC (0); Platelet Count 111 K/mcL (140-400); Red Blood Count 2.79 M/mcL (4.19-5.50); Red Cell Distribution Width 21.6 % (11.5-14.5); Segmented Neutrophils % 83.6 %; White Blood Count 10.9 K/mcL (4.3-11.1)
[2020-02-16 04:43] LABS: VBG Ionized Calcium 1.17 mmol/L (1.15-1.35)
[2020-02-16 04:52] LABS: Alanine Aminotransferase 28 Units/L (7-52); Albumin 2.6 g/dL (3.5-5.7); Albumin/Globulin Ratio 0.9 (1.1-2.2); Alkaline Phosphatase 91 Units/L (34-104); Aspartate Amino Transferase 28 Units/L (13-39); BUN/Creatinine Ratio 24 (6-26); Bilirubin,Total 0.5 mg/dL (0.3-1.0); Blood Urea Nitrogen 29 mg/dL (6-20); Calcium 7.9 mg/dL (8.6-10.3); Carbon Dioxide 26 mEq/L (23-29); Chloride 113 mEq/L (98-107); Glucose 163 mg/dL (70-105); Magnesium 2.6 mg/dL (1.6-2.6); Osmolality,Calculated 305 (280-300); Phosphorous 2.2 mg/dL (2.7-4.5); Potassium 4.1 mEq/L (3.5-5.1); Sodium 143 mEq/L (136-145); Total Protein 5.6 g/dL (6.4-8.9); eGFR For African Americans > 60 (> 60); eGFR For Non-African Americans > 60 (> 60)
[2020-02-16] MEDS: Budesonide/Formoterol 160/4.5 1 PUFF INH IH SCH ×2 (07:33→19:37)
[2020-02-16] MEDS: Chlorhexidine Rinse 15 ML MOUTHWASH MM SCH ×2 (09:03→22:01)
[2020-02-16] MEDS: Pantoprazole 40 MG VIAL IVP SCH (09:03)
[2020-02-16] MEDS: Dexamethasone 4 MG/ML VIAL IVP SCH (09:03)
[2020-02-16] MEDS: Norepinephrine 4 MG/254 ML IV.SOLN IVC SCH (11:00)
[2020-02-16] MEDS ORDERED: Perflutren Lipid Microsphere 1.3 ML in 0.9 % Sodium Chloride 8.7 ML IVP PRN (11:17)
[2020-02-16 12:00] LABS: BUN/Creatinine Ratio 25 (6-26); Blood Urea Nitrogen 28 mg/dL (6-20); Calcium 7.7 mg/dL (8.6-10.3); Carbon Dioxide 27 mEq/L (23-29); Chloride 113 mEq/L (98-107); Glucose 149 mg/dL (70-105); Osmolality,Calculated 306 (280-300); Potassium 4.2 mEq/L (3.5-5.1); Sodium 144 mEq/L (136-145); Vancomycin,Trough 16 mcg/mL (5-10); eGFR For African Americans > 60 (> 60); eGFR For Non-African Americans > 60 (> 60)
[2020-02-16 12:28] LABS: Hematocrit 27.1 % (37.5-50.1); Hemoglobin 8.3 g/dL (12.9-16.9)
[2020-02-16] MEDS: Cisatracurium 200 MG in 0.9 % Sodium Chloride 180 ML IVC SCH (16:25)
[2020-02-16 21:27] LABS: Hematocrit 27.2 % (37.5-50.1); Hemoglobin 8.1 g/dL (12.9-16.9)
[2020-02-16] MEDS: Dexmedetomidine HCl 400 MCG/100 ML MLS IVC SCH (23:19)
[2020-02-17] MEDS: Artificial Tears SOLN 15 ML BOTTLE BOTH EYES SCH ×6 (00:09→19:44)
[2020-02-17] MEDS: Vancomycin 1,250 MG/262.5 ML IV.SOLN IVPB SCH ×2 (00:09→12:11)
[2020-02-17] MEDS: Insulin LISPRO 300 UNITS/3 ML VIAL SQ SCH ×6 (00:09→20:23)
[2020-02-17] MEDS: Piperacillin/Tazobactam 3.375 GM in 0.9 % Sodium Chloride Mini Bag 100 ML IVPB SCH ×3 (03:47→19:47)
[2020-02-17] MEDS: FentaNYL (PF) 1,000 MCG/100 ML IV.SOLN IVC SCH ×2 (03:50→09:42)
[2020-02-17] MEDS: Ipratropium 1 PUFF INHALER IH SCH ×6 (04:09→23:21)
[2020-02-17 04:31] LABS: ABG Base Excess 2 mEq/L (-2 to 3); ABG HCO3 27 mEq/L (21-27); ABG Oxygen Saturation 93 % (95-98); ABG PCO2 39 mmHg (35-45); ABG PH 7.45 pH Units (7.32-7.45); ABG PO2 64 mmHg (85-104); ABG TCO2 28 mEq/L (20-26); Blood Gas Modality ASSIST CONTROL; Blood Gas VT 450 cc
[2020-02-17] MEDS: Dexmedetomidine HCl 400 MCG/100 ML MLS IVC SCH ×4 (05:59→21:53)
[2020-02-17 06:23] LABS: Eosinophils % 0.1 %; Hematocrit 25.3 % (37.5-50.1); Hemoglobin 7.8 g/dL (12.9-16.9); Mean Corpuscular HGB Conc 30.8 g/dL (31.6-35.5)
[2020-02-17 06:24] LABS: VBG Ionized Calcium 1.19 mmol/L (1.15-1.35)
[2020-02-17 06:25] LABS: Immature Granulocytes % 0.4 % (0-4); Immature Platelets 3.2 % (1.1-6.1); Lymphocytes # 0.9 K/mcL (0.6-4.6); Lymphocytes % 10.8 %; Mean Corpuscular Hemoglobin 30.1 pg (28.0-33.3); Mean Corpuscular Volume 97.7 fL (83.0-100.0); Mean Platelet Volume 9.7 fL (9.4-12.4); Monocytes # 0.6 K/mcL (0.0-1.3); Monocytes % 7.1 %; Neutrophils # 6.5 K/mcL (1.6-8.9); Red Blood Count 2.59 M/mcL (4.19-5.50); Red Cell Distribution Width 20.6 % (11.5-14.5); Segmented Neutrophils % 81.6 %
[2020-02-17] MEDS: Levothyroxine 25 MCG TABLET PO SCH (06:38)
[2020-02-17 06:42] LABS: Alanine Aminotransferase 28 Units/L (7-52); Albumin 2.4 g/dL (3.5-5.7); Albumin/Globulin Ratio 0.9 (1.1-2.2); Alkaline Phosphatase 71 Units/L (34-104); Aspartate Amino Transferase 41 Units/L (13-39); BUN/Creatinine Ratio 31 (6-26); Bilirubin,Total 0.4 mg/dL (0.3-1.0); Blood Urea Nitrogen 30 mg/dL (6-20); Calcium 7.6 mg/dL (8.6-10.3); Carbon Dioxide 25 mEq/L (23-29); Chloride 116 mEq/L (98-107); Globulin 2.7 g/dL (2.4-3.5); Glucose 155 mg/dL (70-105); Magnesium 2.6 mg/dL (1.6-2.6); Osmolality,Calculated 309 (280-300); Phosphorous 1.8 mg/dL (2.7-4.5); Sodium 145 mEq/L (136-145); Total Protein 5.1 g/dL (6.4-8.9); eGFR For African Americans > 60 (> 60); eGFR For Non-African Americans > 60 (> 60)
[2020-02-17 07:04] LABS: Platelet Count 96 K/mcL (140-400); Platelet Estimate Slight Decrease (Normal); Poikilocytosis 1+ (Not Present)
[2020-02-17 07:05] LABS: Anisocytosis 1+ (Not Present); Hypochromasia Present (Not Present); Microcytosis Present (Not Present); Ovalocytes 1+ (Not Present)
[2020-02-17] MEDS: Budesonide/Formoterol 160/4.5 1 PUFF INH IH SCH ×2 (07:38→19:45)
[2020-02-17] MEDS: Dexamethasone 4 MG/ML VIAL IVP SCH (08:13)
[2020-02-17] MEDS: Chlorhexidine Rinse 15 ML MOUTHWASH MM SCH ×2 (08:13→19:45)
[2020-02-17] MEDS: Pantoprazole 40 MG VIAL IVP SCH (08:14)
[2020-02-17] MEDS ORDERED: Oxymetazoline Nasal SPRAY BOTTLE NS PRN (08:59)
[2020-02-17 12:00] LABS: BUN/Creatinine Ratio 34 (6-26); Blood Urea Nitrogen 31 mg/dL (6-20); Calcium 7.8 mg/dL (8.6-10.3); Carbon Dioxide 26 mEq/L (23-29); Chloride 116 mEq/L (98-107); Glucose 145 mg/dL (70-105); Osmolality,Calculated 309 (280-300); Potassium 4.1 mEq/L (3.5-5.1); Sodium 145 mEq/L (136-145); eGFR For African Americans > 60 (> 60); eGFR For Non-African Americans > 60 (> 60)
[2020-02-17] MEDS: *HR* Fondaparinux 2.5 MG/0.5 ML SYRINGE SQ SCH (12:06)
[2020-02-17] MEDS ORDERED: *HR* Heparin 5,000 UNIT/ML VIAL SQ SCH (14:00)
[2020-02-17] MEDS: FentaNYL (PF) 2,500 MCG/50 ML IV.SOLN IVC SCH (14:46)
[2020-02-17] MEDS ORDERED: 0.9 % Sodium Chloride 250 ML ONE (18:31)
[2020-02-18] MEDS: Artificial Tears SOLN 15 ML BOTTLE BOTH EYES SCH ×7 (00:35→23:54)
[2020-02-18] MEDS: Insulin LISPRO 300 UNITS/3 ML VIAL SQ SCH ×7 (00:36→23:54)
[2020-02-18] MEDS: Vancomycin 1,250 MG/262.5 ML IV.SOLN IVPB SCH ×2 (00:39→11:32)
[2020-02-18] MEDS: Midazolam HCl 50 MG/100 ML IV.SOLN IVC SCH ×2 (00:46→16:20)
[2020-02-18] MEDS: Dexmedetomidine HCl 400 MCG/100 ML MLS IVC SCH ×5 (02:27→20:32)
[2020-02-18] MEDS: Ipratropium 1 PUFF INHALER IH SCH ×5 (03:08→19:42)
[2020-02-18 04:46] LABS: ABG Base Excess 1 mEq/L (-2 to 3); ABG HCO3 26 mEq/L (21-27); ABG Oxygen Saturation 86 % (95-98); ABG PCO2 42 mmHg (35-45); ABG PO2 52 mmHg (85-104); ABG TCO2 27 mEq/L (20-26); Blood Gas Modality ASSIST CONTROL; Blood Gas VT 450 cc
[2020-02-18] MEDS: Piperacillin/Tazobactam 3.375 GM in 0.9 % Sodium Chloride Mini Bag 100 ML IVPB SCH ×3 (05:00→20:04)
[2020-02-18 05:08] LABS: Basophils % 0.1 %; Immature Granulocytes % 0.5 % (0-4); Mean Platelet Volume 10.5 fL (9.4-12.4); Monocytes % 6.5 %
[2020-02-18 05:10] LABS: Eosinophils % 0.4 %; Hematocrit 30.7 % (37.5-50.1); Hemoglobin 9.5 g/dL (12.9-16.9); Immature Platelets 3.7 % (1.1-6.1); Lymphocytes # 1.2 K/mcL (0.6-4.6); Lymphocytes % 14.2 %; Mean Corpuscular HGB Conc 30.9 g/dL (31.6-35.5); Mean Corpuscular Hemoglobin 30.3 pg (28.0-33.3); Mean Corpuscular Volume 97.8 fL (83.0-100.0); Monocytes # 0.5 K/mcL (0.0-1.3); Neutrophils # 6.5 K/mcL (1.6-8.9); Nucleated Red Blood Cells 0.6 /100 WBC (0); Red Blood Count 3.14 M/mcL (4.19-5.50); Red Cell Distribution Width 19.5 % (11.5-14.5); Segmented Neutrophils % 78.3 %; White Blood Count 8.3 K/mcL (4.3-11.1)
[2020-02-18 05:17] LABS: Platelet Count 88 K/mcL (140-400)
[2020-02-18 05:26] LABS: Alanine Aminotransferase 27 Units/L (7-52); Albumin 2.3 g/dL (3.5-5.7); Albumin/Globulin Ratio 0.8 (1.1-2.2); Alkaline Phosphatase 68 Units/L (34-104); Aspartate Amino Transferase 38 Units/L (13-39); BUN/Creatinine Ratio 35 (6-26); Bilirubin,Total 0.4 mg/dL (0.3-1.0); Blood Urea Nitrogen 28 mg/dL (6-20); Calcium 7.4 mg/dL (8.6-10.3); Carbon Dioxide 24 mEq/L (23-29); Chloride 116 mEq/L (98-107); Globulin 2.8 g/dL (2.4-3.5); Glucose 127 mg/dL (70-105); Osmolality,Calculated 305 (280-300); Potassium 4.1 mEq/L (3.5-5.1); Sodium 144 mEq/L (136-145); Total Protein 5.1 g/dL (6.4-8.9); eGFR For African Americans > 60 (> 60); eGFR For Non-African Americans > 60 (> 60)
[2020-02-18] MEDS: *HR* Fondaparinux 2.5 MG/0.5 ML SYRINGE SQ SCH (06:06)
[2020-02-18 06:33] LABS: VBG Ionized Calcium 1.18 mmol/L (1.15-1.35)
[2020-02-18] MEDS: Levothyroxine Sodium 100 MCG VIAL IVP SCH ×2 (06:40→08:02)
[2020-02-18] MEDS: Pantoprazole 40 MG VIAL IVP SCH (07:57)
[2020-02-18] MEDS: Chlorhexidine Rinse 15 ML MOUTHWASH MM SCH ×2 (07:58→20:03)
[2020-02-18] MEDS: Dexamethasone 4 MG/ML VIAL IVP SCH (07:58)
[2020-02-18] MEDS: Budesonide/Formoterol 160/4.5 1 PUFF INH IH SCH ×2 (08:06→19:42)
[2020-02-18] MEDS ORDERED: Potassium Phosphate 44 MEQ in 0.9 % Sodium Chloride 250 ML IVPB ONE (11:00)
[2020-02-18] MEDS: Docusate Oral Soln 100 MG/10 ML UDC GTUBE SCH ×2 (11:23→20:03)
[2020-02-18] MEDS: FentaNYL (PF) 2,500 MCG/50 ML IV.SOLN IVC SCH ×2 (12:53)
[2020-02-18] MEDS: Norepinephrine 4 MG/254 ML IV.SOLN IVC SCH (13:07)
[2020-02-19] MEDS: FentaNYL (PF) 2,500 MCG/50 ML IV.SOLN IVC SCH ×3 (00:15→23:09)
[2020-02-19] MEDS: Ipratropium 1 PUFF INHALER IH SCH ×7 (00:15→23:16)
[2020-02-19] MEDS: Vancomycin 1,250 MG/262.5 ML IV.SOLN IVPB SCH ×3 (00:21→23:39)
[2020-02-19] MEDS: Dexmedetomidine HCl 400 MCG/100 ML MLS IVC SCH ×5 (01:30→21:29)
[2020-02-19 04:12] LABS: Hemoglobin 9.3 g/dL (12.9-16.9)
[2020-02-19 04:14] LABS: Eosinophils # 0.1 K/mcL (0.0-0.6); Eosinophils % 0.9 %; Hematocrit 30.6 % (37.5-50.1); Immature Granulocytes % 0.5 % (0-4); Lymphocytes % 12.6 %; Mean Corpuscular HGB Conc 30.4 g/dL (31.6-35.5); Mean Corpuscular Hemoglobin 29.8 pg (28.0-33.3); Mean Corpuscular Volume 98.1 fL (83.0-100.0); Mean Platelet Volume 10.6 fL (9.4-12.4); Monocytes # 0.5 K/mcL (0.0-1.3); Monocytes % 6.4 %; Neutrophils # 6.1 K/mcL (1.6-8.9); Nucleated Red Blood Cells 0.7 /100 WBC (0); Red Blood Count 3.12 M/mcL (4.19-5.50); Red Cell Distribution Width 19.4 % (11.5-14.5); Segmented Neutrophils % 79.6 %; White Blood Count 7.6 K/mcL (4.3-11.1)
[2020-02-19 04:14] LABS: VBG Ionized Calcium 1.12 mmol/L (1.15-1.35)
[2020-02-19 04:17] LABS: Platelet Count 87 K/mcL (140-400)
[2020-02-19 04:32] LABS: Alanine Aminotransferase 50 Units/L (7-52); Albumin 2.3 g/dL (3.5-5.7); Albumin/Globulin Ratio 0.9 (1.1-2.2); Alkaline Phosphatase 79 Units/L (34-104); Aspartate Amino Transferase 52 Units/L (13-39); BUN/Creatinine Ratio 28 (6-26); Bilirubin,Total 0.5 mg/dL (0.3-1.0); Blood Urea Nitrogen 27 mg/dL (6-20); Calcium 7.5 mg/dL (8.6-10.3); Carbon Dioxide 25 mEq/L (23-29); Chloride 114 mEq/L (98-107); Globulin 2.7 g/dL (2.4-3.5); Glucose 119 mg/dL (70-105); Magnesium 2.2 mg/dL (1.6-2.6); Osmolality,Calculated 300 (280-300); Phosphorous 2.4 mg/dL (2.7-4.5); Potassium 4.3 mEq/L (3.5-5.1); Sodium 142 mEq/L (136-145); eGFR For African Americans > 60 (> 60); eGFR For Non-African Americans > 60 (> 60)
[2020-02-19] MEDS: Insulin LISPRO 300 UNITS/3 ML VIAL SQ SCH ×6 (04:38→23:50)
[2020-02-19] MEDS: Artificial Tears SOLN 15 ML BOTTLE BOTH EYES SCH ×6 (04:38→23:38)
[2020-02-19] MEDS: Piperacillin/Tazobactam 3.375 GM in 0.9 % Sodium Chloride Mini Bag 100 ML IVPB SCH ×3 (04:40→19:24)
[2020-02-19 04:56] LABS: ABG Base Excess 1 mEq/L (-2 to 3); ABG HCO3 26 mEq/L (21-27); ABG Oxygen Saturation 96 % (95-98); ABG PCO2 43 mmHg (35-45); ABG PH 7.39 pH Units (7.32-7.45); ABG PO2 82 mmHg (85-104); ABG TCO2 27 mEq/L (20-26); Blood Gas Modality ASSIST CONTROL; Blood Gas VT 450 cc
[2020-02-19] MEDS: *HR* Fondaparinux 2.5 MG/0.5 ML SYRINGE SQ SCH (05:15)
[2020-02-19] MEDS: Budesonide/Formoterol 160/4.5 1 PUFF INH IH SCH ×2 (08:21→19:56)
[2020-02-19] MEDS: Levothyroxine Sodium 100 MCG VIAL IVP SCH (08:24)
[2020-02-19] MEDS: Chlorhexidine Rinse 15 ML MOUTHWASH MM SCH ×2 (08:25→19:24)
[2020-02-19] MEDS: Docusate Oral Soln 100 MG/10 ML UDC GTUBE SCH ×2 (08:25→19:24)
[2020-02-19] MEDS: Pantoprazole 40 MG VIAL IVP SCH (08:25)
[2020-02-19] MEDS: Dexamethasone 4 MG/ML VIAL IVP SCH (08:28)
[2020-02-19] MEDS: Norepinephrine 4 MG/254 ML IV.SOLN IVC SCH (14:51)
[2020-02-19] MEDS: Midazolam HCl 50 MG/100 ML IV.SOLN IVC SCH (14:54)
[2020-02-20] MEDS: Ipratropium 1 PUFF INHALER IH SCH ×6 (03:05→23:39)
[2020-02-20] MEDS: Dexmedetomidine HCl 400 MCG/100 ML MLS IVC SCH ×3 (03:57→21:02)
[2020-02-20 04:42] LABS: ABG Base Excess 0 mEq/L (-2 to 3); ABG HCO3 25 mEq/L (21-27); ABG Oxygen Saturation 92 % (95-98); ABG PCO2 43 mmHg (35-45); ABG PH 7.38 pH Units (7.32-7.45); ABG PO2 65 mmHg (85-104); ABG TCO2 27 mEq/L (20-26); Blood Gas Modality AF; Blood Gas VT 450 cc
[2020-02-20] MEDS: FentaNYL (PF) 2,500 MCG/50 ML IV.SOLN IVC SCH ×2 (05:06→13:21)
[2020-02-20] MEDS: Artificial Tears SOLN 15 ML BOTTLE BOTH EYES SCH ×6 (05:07→23:26)
[2020-02-20] MEDS: *HR* Fondaparinux 2.5 MG/0.5 ML SYRINGE SQ SCH (05:07)
[2020-02-20] MEDS: Piperacillin/Tazobactam 3.375 GM in 0.9 % Sodium Chloride Mini Bag 100 ML IVPB SCH ×3 (05:07→19:15)
[2020-02-20] MEDS: Insulin LISPRO 300 UNITS/3 ML VIAL SQ SCH (05:29)
[2020-02-20 06:18] LABS: Basophils % 0.1 %; Immature Granulocytes % 0.3 % (0-4)
[2020-02-20 06:20] LABS: Eosinophils # 0.2 K/mcL (0.0-0.6); Eosinophils % 1.8 %; Hematocrit 34.4 % (37.5-50.1); Hemoglobin 10.4 g/dL (12.9-16.9); Immature Platelets 5.1 % (1.1-6.1); Lymphocytes % 11.9 %; Mean Corpuscular HGB Conc 30.2 g/dL (31.6-35.5); Mean Corpuscular Hemoglobin 30.4 pg (28.0-33.3); Mean Corpuscular Volume 100.6 fL (83.0-100.0); Mean Platelet Volume 10.6 fL (9.4-12.4); Monocytes # 0.5 K/mcL (0.0-1.3); Monocytes % 5.2 %; Neutrophils # 7.1 K/mcL (1.6-8.9); Nucleated Red Blood Cells 0.2 /100 WBC (0); Red Blood Count 3.42 M/mcL (4.19-5.50); Segmented Neutrophils % 80.7 %; White Blood Count 8.8 K/mcL (4.3-11.1)
[2020-02-20 06:21] LABS: VBG Ionized Calcium 1.13 mmol/L (1.15-1.35)
[2020-02-20 06:43] LABS: Lymphocytes # 1.1 K/mcL (0.6-4.6); Platelet Count 90 K/mcL (140-400)
[2020-02-20 06:44] LABS: Alanine Aminotransferase 39 Units/L (7-52); Albumin 2.4 g/dL (3.5-5.7); Albumin/Globulin Ratio 0.8 (1.1-2.2); Alkaline Phosphatase 72 Units/L (34-104); Aspartate Amino Transferase 32 Units/L (13-39); BUN/Creatinine Ratio 32 (6-26); Bilirubin,Total 0.4 mg/dL (0.3-1.0); Blood Urea Nitrogen 26 mg/dL (6-20); Calcium 7.7 mg/dL (8.6-10.3); Carbon Dioxide 26 mEq/L (23-29); Chloride 111 mEq/L (98-107); Globulin 3.1 g/dL (2.4-3.5); Glucose 167 mg/dL (70-105); Magnesium 2.3 mg/dL (1.6-2.6); Osmolality,Calculated 303 (280-300); Phosphorous 2.9 mg/dL (2.7-4.5); Potassium 4.2 mEq/L (3.5-5.1); Sodium 142 mEq/L (136-145); Total Protein 5.5 g/dL (6.4-8.9); eGFR For African Americans > 60 (> 60); eGFR For Non-African Americans > 60 (> 60)
[2020-02-20] MEDS: Budesonide/Formoterol 160/4.5 1 PUFF INH IH SCH ×2 (07:23→19:33)
[2020-02-20] MEDS ORDERED: *HR* LORazepam 2 MG/ML VIAL ONE (11:34)
[2020-02-20] MEDS: Chlorhexidine Rinse 15 ML MOUTHWASH MM SCH ×2 (11:35→19:16)
[2020-02-20] MEDS: Pantoprazole 40 MG VIAL IVP SCH (11:36)
[2020-02-20] MEDS: Dexamethasone 4 MG/ML VIAL IVP SCH (11:36)
[2020-02-20] MEDS: Levothyroxine Sodium 100 MCG VIAL IVP SCH (11:36)
[2020-02-20] MEDS: *HR* LORazepam 2 MG/ML VIAL IVP PRN ×4 (11:42→23:22)
[2020-02-20] MEDS ORDERED: Acetaminophen IV 1,000 MG/100 ML INFUS..BTL IVPB ONE (15:35)
[2020-02-20] MEDS: Norepinephrine 4 MG/254 ML IV.SOLN IVC SCH (18:18)
[2020-02-20] MEDS: Aspirin Enteric Coated 81 MG Tablet PO SCH (18:18)
[2020-02-20] MEDS: Vancomycin 1,250 MG/262.5 ML IV.SOLN IVPB SCH ×2 (18:19→23:35)
[2020-02-21] MEDS: Dexmedetomidine HCl 400 MCG/100 ML MLS IVC SCH ×6 (01:40→22:43)
[2020-02-21] MEDS: Ipratropium 1 PUFF INHALER IH SCH ×6 (03:27→23:29)
[2020-02-21] MEDS: Artificial Tears SOLN 15 ML BOTTLE BOTH EYES SCH ×3 (03:53→11:38)
[2020-02-21] MEDS: Piperacillin/Tazobactam 3.375 GM in 0.9 % Sodium Chloride Mini Bag 100 ML IVPB SCH ×3 (03:54→20:05)
[2020-02-21] MEDS: *HR* Fondaparinux 2.5 MG/0.5 ML SYRINGE SQ SCH (05:50)
[2020-02-21] MEDS: *HR* LORazepam 2 MG/ML VIAL IVP PRN ×3 (06:39→20:05)
[2020-02-21 06:45] LABS: Eosinophils % 0.1 %; Hematocrit 29.5 % (37.5-50.1); Hemoglobin 9.1 g/dL (12.9-16.9); Immature Granulocytes % 0.2 % (0-4); Lymphocytes # 0.7 K/mcL (0.6-4.6); Lymphocytes % 8.4 %; Mean Corpuscular HGB Conc 30.8 g/dL (31.6-35.5); Mean Corpuscular Hemoglobin 30.6 pg (28.0-33.3); Mean Corpuscular Volume 99.3 fL (83.0-100.0); Mean Platelet Volume 11.2 fL (9.4-12.4); Monocytes # 0.6 K/mcL (0.0-1.3); Monocytes % 6.4 %; Neutrophils # 7.3 K/mcL (1.6-8.9); Platelet Count 104 K/mcL (140-400); Red Blood Count 2.97 M/mcL (4.19-5.50); Red Cell Distribution Width 18.6 % (11.5-14.5); Segmented Neutrophils % 84.9 %; White Blood Count 8.6 K/mcL (4.3-11.1)
[2020-02-21] MEDS: Budesonide/Formoterol 160/4.5 1 PUFF INH IH SCH ×2 (07:37→19:43)
[2020-02-21] MEDS: FentaNYL (PF) 2,500 MCG/50 ML IV.SOLN IVC SCH (08:36)
[2020-02-21] MEDS: Pantoprazole 40 MG VIAL IVP SCH (08:37)
[2020-02-21] MEDS: Chlorhexidine Rinse 15 ML MOUTHWASH MM SCH (08:37)
[2020-02-21] MEDS: Dexamethasone 4 MG/ML VIAL IVP SCH (08:38)
[2020-02-21] MEDS: Levothyroxine Sodium 100 MCG VIAL IVP SCH (08:39)
[2020-02-21] MEDS: Norepinephrine 4 MG/254 ML IV.SOLN IVC SCH (11:38)
[2020-02-21] MEDS: Aspirin Enteric Coated 81 MG Tablet PO SCH (11:38)
[2020-02-21] MEDS ORDERED: Haloperidol Lactate 5 MG/ML VIAL IVP PRN (12:44)
[2020-02-21] MEDS ORDERED: *HR* FentaNYL (PF) 100 MCG/2 ML VIAL IVP PRN (12:45)
[2020-02-21] MEDS: Vancomycin 1,250 MG/262.5 ML IV.SOLN IVPB SCH ×2 (13:25→23:55)
[2020-02-21] MEDS: Bisacodyl 10 MG RECTAL SUPPOSITORY RC SCH (20:06)
[2020-02-22] MEDS: Dexmedetomidine HCl 400 MCG/100 ML MLS IVC SCH ×5 (02:11→22:51)
[2020-02-22] MEDS: Ipratropium 1 PUFF INHALER IH SCH ×6 (04:06→23:52)
[2020-02-22] MEDS: Piperacillin/Tazobactam 3.375 GM in 0.9 % Sodium Chloride Mini Bag 100 ML IVPB SCH ×3 (04:10→20:37)
[2020-02-22 04:13] LABS: VBG Ionized Calcium 1.17 mmol/L (1.15-1.35)
[2020-02-22 04:15] LABS: Hemoglobin 9.4 g/dL (12.9-16.9); Mean Corpuscular HGB Conc 31.3 g/dL (31.6-35.5); Mean Corpuscular Hemoglobin 30.9 pg (28.0-33.3); Mean Corpuscular Volume 98.7 fL (83.0-100.0); Mean Platelet Volume 10.6 fL (9.4-12.4); Platelet Count 117 K/mcL (140-400); Red Blood Count 3.04 M/mcL (4.19-5.50); Segmented Neutrophils % 81.8 %; White Blood Count 9.5 K/mcL (4.3-11.1)
[2020-02-22 04:16] LABS: Basophils % 0.1 %; Eosinophils % 0.3 %; Immature Granulocytes % 0.5 % (0-4); Lymphocytes % 10.4 %; Monocytes # 0.7 K/mcL (0.0-1.3); Monocytes % 6.9 %; Neutrophils # 7.8 K/mcL (1.6-8.9)
[2020-02-22] MEDS: *HR* LORazepam 2 MG/ML VIAL IVP PRN ×8 (04:17→22:57)
[2020-02-22 04:31] LABS: Alanine Aminotransferase 27 Units/L (7-52); Albumin 2.5 g/dL (3.5-5.7); Albumin/Globulin Ratio 0.8 (1.1-2.2); Alkaline Phosphatase 76 Units/L (34-104); Aspartate Amino Transferase 38 Units/L (13-39); BUN/Creatinine Ratio 27 (6-26); Bilirubin,Total 0.8 mg/dL (0.3-1.0); Blood Urea Nitrogen 23 mg/dL (6-20); Calcium 8.1 mg/dL (8.6-10.3); Carbon Dioxide 25 mEq/L (23-29); Chloride 111 mEq/L (98-107); Globulin 3.2 g/dL (2.4-3.5); Glucose 84 mg/dL (70-105); Magnesium 2.1 mg/dL (1.6-2.6); Osmolality,Calculated 297 (280-300); Phosphorous 2.7 mg/dL (2.7-4.5); Potassium 4.1 mEq/L (3.5-5.1); Sodium 142 mEq/L (136-145); Total Protein 5.7 g/dL (6.4-8.9); eGFR For African Americans > 60 (> 60); eGFR For Non-African Americans > 60 (> 60)
[2020-02-22] MEDS: *HR* Fondaparinux 2.5 MG/0.5 ML SYRINGE SQ SCH (05:17)
[2020-02-22] MEDS: Aspirin Enteric Coated 81 MG Tablet PO SCH (09:40)
[2020-02-22] MEDS: Levothyroxine Sodium 100 MCG VIAL IVP SCH (09:42)
[2020-02-22] MEDS: Dexamethasone 4 MG/ML VIAL IVP SCH (09:42)
[2020-02-22] MEDS: Budesonide/Formoterol 160/4.5 1 PUFF INH IH SCH ×2 (09:46→19:42)
[2020-02-22] MEDS: Vancomycin 1,250 MG/262.5 ML IV.SOLN IVPB SCH ×2 (12:53→23:09)
[2020-02-22] MEDS: Bisacodyl 10 MG RECTAL SUPPOSITORY RC SCH (21:05)
[2020-02-23 01:45] LABS: Eosinophils % 0.1 %; Hemoglobin 8.6 g/dL (12.9-16.9); Immature Granulocytes % 0.8 % (0-4); Lymphocytes # 0.7 K/mcL (0.6-4.6); Lymphocytes % 9.3 %; Mean Corpuscular HGB Conc 30.7 g/dL (31.6-35.5); Mean Corpuscular Hemoglobin 29.8 pg (28.0-33.3); Mean Corpuscular Volume 96.9 fL (83.0-100.0); Mean Platelet Volume 11.2 fL (9.4-12.4); Monocytes # 0.6 K/mcL (0.0-1.3); Monocytes % 7.7 %; Neutrophils # 6.2 K/mcL (1.6-8.9); Platelet Count 118 K/mcL (140-400); Red Blood Count 2.89 M/mcL (4.19-5.50); Red Cell Distribution Width 17.8 % (11.5-14.5); Segmented Neutrophils % 82.1 %; White Blood Count 7.5 K/mcL (4.3-11.1)
[2020-02-23] MEDS: Dexmedetomidine HCl 400 MCG/100 ML MLS IVC SCH ×6 (02:00→21:40)
[2020-02-23 02:06] LABS: BUN/Creatinine Ratio 30 (6-26); Blood Urea Nitrogen 25 mg/dL (6-20); Calcium 8.1 mg/dL (8.6-10.3); Carbon Dioxide 24 mEq/L (23-29); Chloride 111 mEq/L (98-107); Glucose 92 mg/dL (70-105); Osmolality,Calculated 300 (280-300); Potassium 4.1 mEq/L (3.5-5.1); Sodium 143 mEq/L (136-145); eGFR For African Americans > 60 (> 60); eGFR For Non-African Americans > 60 (> 60)
[2020-02-23] MEDS: *HR* LORazepam 2 MG/ML VIAL IVP PRN ×4 (02:34→22:25)
[2020-02-23] MEDS: Ipratropium 1 PUFF INHALER IH SCH ×6 (03:37→23:49)
[2020-02-23] MEDS: Piperacillin/Tazobactam 3.375 GM in 0.9 % Sodium Chloride Mini Bag 100 ML IVPB SCH ×3 (03:42→18:31)
[2020-02-23] MEDS: *HR* Fondaparinux 2.5 MG/0.5 ML SYRINGE SQ SCH (05:37)
[2020-02-23] MEDS ORDERED: Ondansetron 4 MG/2 ML VIAL IVP PRN (07:19)
[2020-02-23] MEDS ORDERED: D5% in Water 1,000 ML IVC PRN ×2 (07:19→14:37)
[2020-02-23] MEDS ORDERED: Perflutren Lipid Microsphere 1.3 ML in 0.9 % Sodium Chloride 8.7 ML IVP PRN (07:19)
[2020-02-23] MEDS ORDERED: Calcium Gluconate 1gm/50mL 1 GM/50 ML BAG IVPB PRN (07:19)
[2020-02-23] MEDS ORDERED: Dextrose Gel 15 GM/37.5 ML TUBE PO PRN ×4 (07:19→14:37)
[2020-02-23] MEDS ORDERED: Oxymetazoline Nasal SPRAY BOTTLE NS PRN (07:19)
[2020-02-23] MEDS ORDERED: Artificial Tears SOLN 15 ML BOTTLE BOTH EYES PRN (07:19)
[2020-02-23] MEDS ORDERED: *HR* Dextrose 50 % in Water (Vial) 50 ML VIAL IVP PRN ×2 (07:19→14:37)
[2020-02-23] MEDS ORDERED: Acetaminophen 650 MG RECTAL SUPP RC PRN (07:19)
[2020-02-23] MEDS: Budesonide/Formoterol 160/4.5 1 PUFF INH IH SCH ×2 (07:38→19:45)
[2020-02-23] MEDS: Docusate Oral Soln 100 MG/10 ML UDC GTUBE SCH (07:44)
[2020-02-23] MEDS: Insulin LISPRO 300 UNITS/3 ML VIAL SQ SCH ×4 (07:44→23:31)
[2020-02-23] MEDS: Levothyroxine Sodium 100 MCG VIAL IVP SCH (08:52)
[2020-02-23] MEDS: Dexamethasone Sodium Phos/PF 10 MG/ML VIAL IVP SCH (08:53)
[2020-02-23] MEDS: Aspirin Enteric Coated 81 MG Tablet PO SCH (08:53)
[2020-02-23] MEDS: Vancomycin 1,250 MG/262.5 ML IV.SOLN IVPB SCH ×3 (11:46→23:09)
[2020-02-23 14:58] LABS: VBG Ionized Calcium 1.15 mmol/L (1.15-1.35)
[2020-02-23 15:17] LABS: BUN/Creatinine Ratio 29 (6-26); Blood Urea Nitrogen 24 mg/dL (6-20); Carbon Dioxide 22 mEq/L (23-29); Chloride 110 mEq/L (98-107); Glucose 112 mg/dL (70-105); Magnesium 1.9 mg/dL (1.6-2.6); Osmolality,Calculated 299 (280-300); Phosphorous 3.6 mg/dL (2.7-4.5); Potassium 4.4 mEq/L (3.5-5.1); Sodium 142 mEq/L (136-145); eGFR For African Americans > 60 (> 60); eGFR For Non-African Americans > 60 (> 60)
[2020-02-23] MEDS: Haloperidol Lactate 5 MG/ML VIAL IVP PRN ×2 (15:27→20:09)
[2020-02-23] MEDS: Furosemide 40 MG/4 ML VIAL IVP SCH (15:33)
[2020-02-23] MEDS: *HR* FentaNYL (PF) 100 MCG/2 ML VIAL IVP PRN ×3 (16:09→23:12)
[2020-02-23] MEDS ORDERED: Bisacodyl 10 MG RECTAL SUPPOSITORY RC SCH (21:00)
[2020-02-24] MEDS: Haloperidol Lactate 5 MG/ML VIAL IVP PRN (01:08)
[2020-02-24] MEDS: Dexmedetomidine HCl 400 MCG/100 ML MLS IVC SCH ×4 (01:51→14:45)
[2020-02-24] MEDS: Piperacillin/Tazobactam 3.375 GM in 0.9 % Sodium Chloride Mini Bag 100 ML IVPB SCH ×2 (01:52→11:54)
[2020-02-24] MEDS: Ipratropium 1 PUFF INHALER IH SCH ×4 (03:37→15:09)
[2020-02-24 04:15] LABS: Eosinophils # 0.1 K/mcL (0.0-0.6); Eosinophils % 1.3 %; Hematocrit 28.2 % (37.5-50.1); Hematocrit 28.8 % (37.5-50.1); Hemoglobin 9.1 g/dL (12.9-16.9); Hemoglobin 9.2 g/dL (12.9-16.9); Immature Granulocytes % 0.6 % (0-4); Lymphocytes # 0.7 K/mcL (0.6-4.6); Lymphocytes % 8.4 %; Mean Corpuscular HGB Conc 31.9 g/dL (31.6-35.5); Mean Corpuscular HGB Conc 32.3 g/dL (31.6-35.5); Mean Corpuscular Hemoglobin 30.4 pg (28.0-33.3); Mean Corpuscular Hemoglobin 30.7 pg (28.0-33.3); Mean Corpuscular Volume 95.3 fL (83.0-100.0); Mean Platelet Volume 11.3 fL (9.4-12.4); Monocytes # 0.5 K/mcL (0.0-1.3); Monocytes % 6.4 %; Neutrophils # 7.1 K/mcL (1.6-8.9); Platelet Count 120 K/mcL (140-400); Platelet Count 123 K/mcL (140-400); Red Blood Count 2.96 M/mcL (4.19-5.50); Red Blood Count 3.03 M/mcL (4.19-5.50); Red Cell Distribution Width 17.8 % (11.5-14.5); Segmented Neutrophils % 83.3 %; White Blood Count 8.2 K/mcL (4.3-11.1); White Blood Count 8.5 K/mcL (4.3-11.1)
[2020-02-24 04:18] LABS: VBG Ionized Calcium 1.17 mmol/L (1.15-1.35)
[2020-02-24 04:33] LABS: Alanine Aminotransferase 28 Units/L (7-52); Albumin 2.6 g/dL (3.5-5.7); Albumin/Globulin Ratio 0.8 (1.1-2.2); Alkaline Phosphatase 100 Units/L (34-104); Aspartate Amino Transferase 31 Units/L (13-39); BUN/Creatinine Ratio 30 (6-26); Bilirubin,Total 0.7 mg/dL (0.3-1.0); Blood Urea Nitrogen 26 mg/dL (6-20); Calcium 8.5 mg/dL (8.6-10.3); Carbon Dioxide 25 mEq/L (23-29); Chloride 108 mEq/L (98-107); Globulin 3.1 g/dL (2.4-3.5); Glucose 86 mg/dL (70-105); Osmolality,Calculated 300 (280-300); Potassium 3.7 mEq/L (3.5-5.1); Sodium 143 mEq/L (136-145); Total Protein 5.7 g/dL (6.4-8.9); eGFR For African Americans > 60 (> 60); eGFR For Non-African Americans > 60 (> 60)
[2020-02-24 04:34] LABS: Magnesium 1.9 mg/dL (1.6-2.6)
[2020-02-24] MEDS: *HR* FentaNYL (PF) 100 MCG/2 ML VIAL IVP PRN ×3 (05:30→10:50)
[2020-02-24] MEDS: Insulin LISPRO 300 UNITS/3 ML VIAL SQ SCH ×2 (05:52→11:54)
[2020-02-24] MEDS ORDERED: *HR* Fondaparinux 2.5 MG/0.5 ML SYRINGE SQ SCH (06:00)
[2020-02-24] MEDS: *HR* LORazepam 2 MG/ML VIAL IVP PRN ×4 (06:17→15:17)
[2020-02-24] MEDS: Budesonide/Formoterol 160/4.5 1 PUFF INH IH SCH (07:51)
[2020-02-24] MEDS: Furosemide 40 MG/4 ML VIAL IVP SCH (08:07)
[2020-02-24] MEDS: Levothyroxine Sodium 100 MCG VIAL IVP SCH (08:07)
[2020-02-24] MEDS: Dexamethasone Sodium Phos/PF 10 MG/ML VIAL IVP SCH (08:07)
[2020-02-24] MEDS: Aspirin Enteric Coated 81 MG Tablet PO SCH (08:26)
[2020-02-24 11:06] VITALS: BP 125/83
[2020-02-24] MEDS ORDERED: FentaNYL (PF) 1,000 MCG/100 ML IV.SOLN IVC SCH (12:00)
[2020-02-24] MEDS ORDERED: Haloperidol Lactate 5 MG/ML VIAL IVP SCH (14:00)
== END 2020-02-24 16:58 | disposition expired | DRG 853 ==
LOC: 2NENU 09:36 → EMEROOARM 09:36 → SUATTDRO 14:06 → 2NENU 17:43
PROVIDERS: ADMIT Internal Medicine; ATTEND Internal Medicine